=== PATIENT | female | born 1965 | race Caucasian/White ===

== ENCOUNTER 2016-04-13 08:01 | Outpatient (CLI) | payer BC | END 2016-04-13 20:54 | disposition home or self-care (01) | LOC: SMA 08:01 | PROVIDERS: ATTEND Family Medicine | DX: Z12.31 Encounter for screening mammogram for malignant neoplasm of breast (principal) | CPT/HCPCS: 77067; G0202 ==

== ENCOUNTER 2016-05-03 09:17 | Outpatient (CLI) | payer BC | END 2016-05-03 18:16 | disposition home or self-care (01) | LOC: SUS 09:17 | PROVIDERS: ATTEND Family Medicine | DX: N63 Unspecified lump in breast (principal) | CPT/HCPCS: 76641 ==

== ENCOUNTER 2016-09-23 08:18 | Outpatient (CLI) | payer BC | END 2016-09-23 19:12 | disposition home or self-care (01) | LOC: SUS 08:18 | PROVIDERS: ATTEND Family Medicine | DX: N60.01 Solitary cyst of right breast (principal) | CPT/HCPCS: 76642 ==

== ENCOUNTER 2017-06-21 10:58 | Outpatient (CLI) | payer BC | END 2017-06-21 20:47 | disposition home or self-care (01) | LOC: SMA 10:58 | DX: Z12.31 Encounter for screening mammogram for malignant neoplasm of breast (principal); N60.01 Solitary cyst of right breast | CPT/HCPCS: 77067 ==